=== PATIENT | male | born 1970 | race Caucasian/White ===

== ENCOUNTER 2018-07-16 21:18 | Emergency (ER) | payer SELFPAY ==
[2018-07-16] MEDS ORDERED: NORMAL SALINE 1000 ML 1,000 ML IV ONE (22:33)
--- NOTE | 2018-07-16 22:33 | ER Document Report ---
ED General - General Chief Complaint: Seizure Stated Complaint: POSSIBLE SEIZURE Time Seen by Provider: 07/16/18 22:07 Primary Care Provider: ASHWIN FELDER MD [Primary Care Provider] - Follow up in 3-5 days Notes: Patient is a 48-year-old male that presents to the emergency department for chief complaint of seizure. Patient had been sick and vomiting essentially all day, he did try to get shower he went out to walk the dogs, and then he got home he went to go to his bedroom, and then he stiffened up and had a seizure that lasted 30-45 seconds, this tonic-clonic in nature, he actually bit his tongue as well. This was witnessed by his family. Is never had seizure before, but he does drink alcohol they state about a half a gallon of hard liquor, on a daily basis, but has not had a drink since yesterday almost 24 hours prior, because he is not been feeling well the entire day. He was briefly postictal, but is feeling better now. He has a mild headache, but denies any significant pain. He rates his pain currently as a 2 out of 10 and relates it to his tongue. He denies having any chest pain, shortness of breath, abdominal pain, recent dysuria or hematuria. Past Medical History: Chronic alcohol use, hypertension Past Surgical History: Denies surgical history Social History: Admits to smoking cigarettes daily, admits to drinking a significant amount of alcohol use on a daily basis, denies illicit drug use. Family History: Reviewed and noncontributory for presenting illness Allergies: Reviewed, see documented allergy list. REVIEW OF SYSTEMS: Other than noted above, the 12 point review of systems was reviewed with the patient and were negative, all pertinent findings are included in the HPI. PHYSICAL EXAMINATION: Vital signs reviewed, nursing noted reviewed. GENERAL: Well-appearing, well-nourished and in no acute distress. HEAD: Atraumatic, normocephalic. EYES: Eyes appear normal, extraocular movements intact, sclera anicteric, conjunctiva are normal. ENT: nares patent, oropharynx clear without exudates. Moist mucous membranes. There is mild ecchymosis bilaterally on the tongue, without deep tongue laceration noted. NECK: Normal range of motion, supple without lymphadenopathy, no midline tenderness LUNGS: Breath sounds clear to auscultation bilaterally and equal. No wheezes rales or rhonchi. HEART: Regular rate and rhythm without murmurs ABDOMEN: Soft, nontender, normoactive bowel sounds. No rebound, guarding, or rigidity. No masses appreciated. EXTREMITIES: Nontender, good range of motion, no pitting or edema. NEUROLOGICAL: No focal neurological deficits. Moves all extremities spontaneously Motor and sensory grossly intact on exam. No tremor, and no clonus noted on exam. PSYCH: Normal mood, normal affect. SKIN: Warm, Dry, normal turgor, no rashes or lesions noted on exposed skin - Related Data Allergies/Adverse Reactions: Unable to Assess Allergy (Unverified 07/16/18 22:31) Past Medical History - Social History Smoking Status: Current Every Day Smoker Frequency of alcohol use: Heavy Family History: Reviewed & Not Pertinent Physical Exam - Vital signs Vitals: Pulse Ox 99 07/16/18 21:24 Course - Re-evaluation Re-evalutation: Patient seen and examined vital signs reviewed. Laboratory data and/or imaging were ordered as appropriate for the patient's presenting symptoms and complaint, with consideration of any critical or life threatening conditions that may be associated with their obtained history and exam as noted above. Patient was treated with IV fluids, IV Ativan 2 mg, and IV Zofran Results were reviewed when available and demonstrated mild hyponatremia, mild transaminitis, to be expected in a patient that drinks as much as this patient does, no evidence of acute liver failure. The patient was re-evaluated and was stable and improved, no further vomiting in the ED. Evaluation was most consistent with alcohol withdrawal seizure, nausea and vomiting, patient will be prescribed Zofran dispense pack, and be given a dose of Valium 50 mg, prior to ED discharge, to prevent further seizure, as the patient has not had a drink in a significant amount of time, is not planning on drinking alcohol when he gets home. We do not have chlordiazepoxide in the hospital, which would be preferred, therefore that is why the patient is given Valium. He is advised to follow-up with his primary care physician, given community resources, for substance abuse and alcohol abuse. Results were discussed with the patient at this point, after careful consideration I feel that that patient can be discharged from the emergency department, the patient was educated treatments and reasons to return to the emergency department based on their presumed diagnosis as noted above, they were advised to followup with a primary care physician in 2-3 days. Patient was agreeable to plan of care. *Note is created using voice recognition software and may contain spelling, syntax or grammatical errors. Laboratory 07/16/18 07/16/18 21:25 21:25 WBC 4.8 RBC 3.78 L Hgb 13.3 L Hct 38.9 MCV 103 H MCH 35.3 H MCHC 34.3 RDW 13.9 Plt Count 310 Seg Neutrophils % 82.2 H Lymphocytes % 7.1 L Monocytes % 10.2 Eosinophils % 0.0 Basophils % 0.5 Absolute Neutrophils 3.9 Absolute Lymphocytes 0.3 L Absolute Monocytes 0.5 Absolute Eosinophils 0.0 Absolute Basophils 0.0 Sodium 133.6 L Potassium 3.8 Chloride 98 Carbon Dioxide 17 L Anion Gap 19 BUN 10 Creatinine 0.74 Est GFR ( Amer) > 60 Est GFR (Non-Af Amer) > 60 Glucose 149 H Calcium 10.1 Total Bilirubin 0.6 Direct Bilirubin 0.4 Neonat Direct Bilirubin Not Reportable Neonat Indirect Bili Not Reportable AST 119 H ALT 93 H Alkaline Phosphatase 68 Total Protein 7.9 Albumin 5.0 - Vital Signs Vital signs: Temp Pulse Resp BP Pulse Ox 98.3 F 20 151/92 H 96 07/16/18 22:31 07/16/18 23:01 07/16/18 23:01 07/16/18 23:01 - Laboratory Result Diagrams: 07/16/18 21:25 07/16/18 21:25 Laboratory results interpreted by me: 07/16/18 07/16/18 21:25 21:25 RBC 3.78 L Hgb 13.3 L MCV 103 H MCH 35.3 H Seg Neutrophils % 82.2 H Lymphocytes % 7.1 L Absolute Lymphocytes 0.3 L Sodium 133.6 L Carbon Dioxide 17 L Glucose 149 H AST 119 H ALT 93 H - EKG Interpretation by Me Additional EKG results interpreted by me: EKG demonstrates sinus rhythm with a ventricular rate of 87 bpm, normal axis, QTC 487 ms, no ST elevation, no prior EKG available for comparison. Discharge - Discharge Clinical Impression: Alcohol withdrawal seizure Qualifiers: Complication of substance-induced condition: uncomplicated Qualified Code(s): F10.230 - Alcohol dependence with withdrawal, uncomplicated Nausea and vomiting Qualifiers: Vomiting type: unspecified Vomiting Intractability: non-intractable Qualified Code(s): R11.2 - Nausea with vomiting, unspecified Condition: Stable Disposition: HOME, SELF-CARE Instructions: Alcohol Withdrawl (OM) Additional Instructions: Please follow-up with your primary care physician, he can also follow-up with community resources, for alcohol detox. If you do not wish to pursue alcohol detox at this time, you should not stop alcohol consumption abruptly, as it can result in withdrawal symptoms including further seizures. You have been prescribed a medication, dispense from the ER to help with your nausea and vomiting. Referrals: ASHWIN FELDER MD [Primary Care Provider] - Follow up in 3-5 days
[2018-07-16] MEDS ORDERED: ONDANSETRON HCL INJ/PF 4 MG/2 ML SDV IV ONE (22:34)
[2018-07-16] MEDS ORDERED: LORAZEPAM INJ 2 MG/1 ML VIAL IV ONE (22:34)
[2018-07-16 23:17] LABS: ABSOLUTE LYMPHOCYTES (AUTO) 0.3 10^3/uL (0.5-4.7); ABSOLUTE MONOCYTES (AUTO) 0.5 10^3/uL (0.1-1.4); ABSOLUTE NEUT (AUTO) 3.9 10^3/uL (1.7-8.2); BASOPHILS % (AUTO) 0.5 % (0-2); HEMATOCRIT 38.9 % (37.9-51.0); HEMOGLOBIN 13.3 g/dL (13.5-17.0); LYMPHOCYTES % (AUTO) 7.1 % (13-45); MEAN CORPUSCULAR HEMOGLOBIN 35.3 pg (27.0-33.4); MEAN CORPUSCULAR HGB CONC 34.3 g/dL (32.0-36.0); MEAN CORPUSCULAR VOLUME 103 fl (80-97); MONOCYTES % (AUTO) 10.2 % (3-13); PLATELET COUNT 310 10^3/uL (150-450); RED BLOOD COUNT 3.78 10^6/uL (4.35-5.55); RED CELL DISTRIBUTION WIDTH 13.9 % (11.5-14.0); SEGMENTED NEUTROPHILS % (AUTO) 82.2 % (42-78); TOTAL CELLS COUNTED % (AUTO) 100 %; WHITE BLOOD COUNT 4.8 10^3/uL (4.0-10.5)
[2018-07-17 01:09] LABS: ALANINE AMINOTRANSFERASE 93 U/L (21-72); ALKALINE PHOSPHATASE 68 U/L (38-126); ANION GAP 19 (5-19); ASPARTATE AMINO TRANSFERASE 119 U/L (17-59); BILIRUBIN,DIRECT 0.4 mg/dL (0.0-0.4); BILIRUBIN,TOTAL 0.6 mg/dL (0.2-1.3); BLOOD UREA NITROGEN 10 mg/dL (7-20); CALCIUM 10.1 mg/dL (8.4-10.2); CARBON DIOXIDE 17 mmol/L (22-30); CHLORIDE 98 mmol/L (98-107); GLUCOSE 149 mg/dL (75-110); POTASSIUM 3.8 mmol/L (3.6-5.0); SODIUM 133.6 mmol/L (137-145); TOTAL PROTEIN 7.9 g/dL (6.3-8.2)
[2018-07-17] MEDS ORDERED: ONDANSETRON ODT 4 MG TAB (6 TAB/ER DISP) PO PRN (01:26)
[2018-07-17] MEDS ORDERED: DIAZEPAM 5 MG TABLET PO ONE (01:35)
[2018-07-17 01:55] VITALS: BP 149/101
--- NOTE | 2018-07-17 07:53 | EKG REPORT ---
SEVERITY:- BORDERLINE ECG - SINUS RHYTHM BORDERLINE PROLONGED QT INTERVAL : Confirmed by: Wai Marmolejo MD 17-Jul-2018 07:52:33
== END 2018-07-17 01:55 | disposition home or self-care (01) ==
LOC: ER 21:18
DX: F10.230 Alcohol dependence with withdrawal, uncomplicated (principal); G40.89 Other seizures; R51 Headache; R11.2 Nausea with vomiting, unspecified; E87.6 Hypokalemia; R74.0 Nonspecific elevation of levels of transaminase and lactic acid dehydrogenase [LDH]; S01.552A Open bite of oral cavity, initial encounter; W50.3XXA Accidental bite by another person, initial encounter; Y93.89 Activity, other specified; I10 Essential (primary) hypertension; F17.210 Nicotine dependence, cigarettes, uncomplicated
CPT/HCPCS: 93005; 99285; 96361; 96374; 96375; 36415; 85025; 80053; 93010; J2060; J2405; J7030